=== PATIENT | male | born 1980 | race Caucasian/White ===

== ENCOUNTER 2017-10-03 11:07 | Emergency (ER) | payer SELFPAY, OTHER | END 2017-10-03 12:03 | disposition home or self-care (01) | LOC: M ED 11:07 | DX: S80.12XA Contusion of left lower leg, initial encounter (principal); W01.198A Fall on same level from slipping, tripping and stumbling with subsequent striking against other object, initial encounter; Y92.59 Other trade areas as the place of occurrence of the external cause; Y99.0 Civilian activity done for income or pay | CPT/HCPCS: 73590 ==